=== PATIENT | male | born 1980 | race Two or more races ===

== ENCOUNTER 2017-04-26 21:05 | Emergency (ER) | payer SELFPAY ==
[2017-04-26 21:17] VITALS: BP 120/78; PULSE 70; RESP 18; TEMP 98.3; O2SAT 98
--- NOTE | 2017-04-26 22:05 | C.PDOC ---
History Of Present Illness 37 year old male presents to the ER with a complaint of a puritic rash to the upper chest and arms for the past 2 weeks after he went on a business trip and had to sleep in a motel. Patient is also complaining of irritation to the lower abdomen below the umbilicus for an even longer amount of time. Denies chest pain , SOB, difficulty breathing, or difficulty swallowing. Time Seen by Provider: 04/26/17 21:23 Chief Complaint (Nursing): Abnormal Skin Integrity History Per: Patient History/Exam Limitations: no limitations Onset/Duration Of Symptoms: Days Current Symptoms Are (Timing): Still Present Location Of Injury: Anterior: Abdomen Quality Of Symptoms: Itching Recent travel outside of the [place]: No Past Medical History Reviewed: Historical Data, Nursing Documentation, Vital Signs Vital Signs: Last Vital Signs Temp 98.3 F 04/26/17 21:12 Pulse 70 04/26/17 21:12 Resp 18 04/26/17 21:12 BP 120/78 04/26/17 21:12 Pulse Ox 98 04/27/17 00:35 Family History: States: Unknown Family Hx - Social History Hx Tobacco Use: No Hx Alcohol Use: No Hx Substance Use: No - Immunization History Hx Tetanus Toxoid Vaccination: No Hx Influenza Vaccination: No Hx Pneumococcal Vaccination: No Review Of Systems Constitutional: Negative for: Fever, Chills Cardiovascular: Negative for: Chest Pain, Palpitations Respiratory: Negative for: Shortness of Breath Skin: Positive for: Rash Physical Exam - Physical Exam Appears: Non-toxic Skin: Warm, Dry, Rash (Dry scaly erythema to lower abdomen consistent with contact dermatitis. Upper torso and bilateral arms with tiny maculopapular rash w/ scratch andre ) Head: Atraumatic, Normacephalic Eye(s): bilateral: Normal Inspection Chest: Symmetrical, No Tenderness Cardiovascular: Rhythm Regular Respiratory: Normal Breath Sounds, No Accessory Muscle Use, No Stridor, No Wheezing Gastrointestinal/Abdominal: Soft, No Tenderness Extremity: Normal ROM (x4) Neurological/Psych: Oriented x3, Normal Speech ED Course And Treatment O2 Sat by Pulse Oximetry: 98 (Room air) Pulse Ox Interpretation: Normal Progress Note: Patient is resting comfortably in the ER in no acute distress, vitals are stable, will discharge home with dermatology referral. Disposition - Disposition Referrals: [facility] at [facility] [Outside] Disposition: HOME/ ROUTINE Disposition Time: 22:00 Condition: STABLE Additional Instructions: Follow up with Commercial Lines Manager within 1-2 days. Return to ED if feel worse. 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 - Scribe Statement The provider has reviewed the documentation as recorded by the Scribe Riley Grier All medical record entries made by the Lorraine were at my direction and personally dictated by me. I have reviewed the chart and agree that the record accurately reflects my personal performance of the history, physical exam, medical decision making, and the department course for this patient. I have also personally directed, reviewed, and agree with the discharge instructions and disposition.
== END 2017-04-26 22:15 | disposition home or self-care (01) ==
LOC: C.ER 21:05
DX: R21 Rash and other nonspecific skin eruption (principal)

== ENCOUNTER 2018-06-19 12:44 | Observation (INO) | payer OTHER ==
--- NOTE | 2018-06-19 13:36 | C.PDOC ---
History Of Present Illness 38 year old male presents to ED with complaint of body aches s/p fall that occurred today at work. Patient states that he fell down a ladder when he lost his balance going down and fell 9 feet. Patient states that he fell on his left hip and right shoulder. Patient admits to head impact. Patient also complains of left hip, left ankle, left foot, right shoulder and right elbow pain. Patient rates the pain as a 9/10 in severity. He denies other injuries, syncope, headache, dizziness, weakness, chest pain, SOB, nausea, or vomiting. - HPI Chief Complaint (Nursing): Trauma History Per: Patient History/Exam Limitations: no limitations Onset/Duration Of Symptoms: Hrs Location Of Injury: Right: Elbow, Shoulder, Left: Ankle, Foot, Hip Pain Scale Rating Of: 9 - Fall Fall:Prior To Injury: Lost Balance Past Medical History Reviewed: Historical Data, Nursing Documentation, Vital Signs Vital Signs: Last Vital Signs Temp 98.6 F 06/19/18 12:49 Pulse 60 06/19/18 12:49 Resp 18 06/19/18 12:49 BP 116/74 06/19/18 12:49 Pulse Ox 100 06/19/18 12:49 Primary Care Provider: FAMILY PROVIDER,NO - Medical History PMH: No Chronic Diseases Surgical History: No Surg Hx Family History: States: Unknown Family Hx - Social History Hx Tobacco Use: No Hx Alcohol Use: No Hx Substance Use: No - Immunization History Hx Tetanus Toxoid Vaccination: No Hx Influenza Vaccination: No Hx Pneumococcal Vaccination: No Review Of Systems Constitutional: Positive for: Malaise. Negative for: Weakness Eyes: Negative for: Vision Change Cardiovascular: Negative for: Chest Pain Respiratory: Negative for: Shortness of Breath Gastrointestinal: Negative for: Nausea, Vomiting Musculoskeletal: Positive for: Shoulder Pain (right), Arm Pain (right elbow), Leg Pain (left hip pain ), Foot Pain (left foot and ankle pain ) Neurological: Negative for: Weakness, Numbness, Headache, Dizziness Physical Exam - Physical Exam Appears: Well, Non-toxic, No Acute Distress Skin: Normal Color, Warm, Dry Head: Normacephalic, No Tenderness, No Swelling, Abrasion (small, superficial abrasion to the forehead), No Other (active bleeding) Eye(s): bilateral: Normal Inspection, PERRL, EOMI Ear(s): Bilateral: Normal Nose: Normal, No Discharge Oral Mucosa: Moist Tongue: Normal Appearing Lips: Normal Appearing Throat: No Erythema, No Exudate Neck: Normal ROM, No Midline Cervical Tenderness, No Paracervical Tenderness, Supple Chest: Symmetrical, No Deformity Cardiovascular: Rhythm Regular, No Murmur Respiratory: Normal Breath Sounds, No Accessory Muscle Use, No Rales, No Rhonch i, No Wheezing Gastrointestinal/Abdominal: Soft, No Tenderness Extremity: Normal ROM (left ankle and left foot), Tenderness (left ankle, left hip, left foot, right shoulder, and right elbow tender to palpation, no ecchymosis, no edema, no erythema), No Calf Tenderness, Capillary Refill (<2 seconds), No Deformity, Other (limited ROM of the left hip and right shoulder due to pain) Pulses: Left Brachial: Normal, Right Brachial: Normal, Left Radial: Normal, Right Radial: Normal, Left Dorsalis Pedis: Normal, Right Dorsalis Pedis: Normal Neurological/Psych: Oriented x3, Normal Speech, Normal Cognition, Normal Sensation Gait: Unsteady ED Course And Treatment - Laboratory Results Result Diagrams: 06/20/18 07:06 06/20/18 07:06 O2 Sat by Pulse Oximetry: 100 (in RA) Pulse Ox Interpretation: Normal - Other Rad right elbow x-ray X-Ray: Viewed By Sd, Read By Radiologist Interpretation: Date of service: 06/19/2018. PROCEDURE: Radiographs of the right elbow. HISTORY: s/p fall. COMPARISON: No prior. TECHNIQUE: 3 views obtained. FINDINGS: BONES: Normal. No fracture. JOINTS: Normal. No osteoarthritis. SOFT TISSUES: Normal. JOINT EFFUSION: None. OTHER FINDINGS: None. IMPRESSION: Unremarkable radiographs of the right elbow. Left ankle x-ray X-Ray: Viewed By Me, Read By Radiologist Interpretation: Date of service: 06/19/2018. PROCEDURE: Left Ankle Radiographs. HISTORY: s/p fall. COMPARISON: None available. TECHNIQUE: 3 views obtained. FINDINGS: BONES: Normal. No fracture. JOINTS: Normal. No osteoarthritis. Ankle mortise maintained. Talar dome intact. SOFT TISSUES: Normal. OTHER FINDINGS: None. IMPRESSION: Normal left ankle radiographs. Left foot x-ray X-Ray: Viewed By Me, Read By Radiologist Interpretation: 06/19/2018. PROCEDURE: Left Foot Radiographs. HISTORY: s/p fall. COMPARISON: None. TECHNIQUE: 3 views obtained. FINDINGS: BONES: Curvilinear ossific density adjacent to the medial border of the navicular could represent avulsion injury. Indeterminate chronicity. Correlate with clinical examination. No other fracture identified. JOINTS: Normal. SOFT TISSUES: Normal. OTHER FINDINGS: None. IMPRESSION: Questionable cortical avulsion fracture of the medial aspect of the navicular. Indeterminate chronicity. Please correlate clinically. No additional abnormality. Left hip x-ray X-Ray: Viewed By Me, Read By Radiologist Interpretation: PROCEDURE: Left Hip X-ray Radiographs. HISTORY: s/p fall. COMPARISON: None. TECHNIQUE: 2 views obtained. FINDINGS: BONES: Normal. No fracture. JOINTS: Normal. SOFT TISSUES: Normal. OTHER FINDINGS: None. IMPRESSION: Normal left hip radiographs. right shoulder x-ray X-Ray: Viewed By Me, Read By Radiologist Interpretation: Date of service: 06/19/2018. PROCEDURE: Radiographs of the Right Shoulder. HISTORY: s/p fall. COMPARISON: No prior. TECHNIQUE: 3 views obtained. FINDINGS: BONES: Normal. No fracture. JOINTS: Normal. Glenohumeral and acromioclavicular joints preserved. No osteoarthritis. SOFT TI SSUES: Normal. OTHER FINDINGS: None. IMPRESSION: Normal radiographs of the right shoulder. - CT Scan/US Left lower leg CT Other Rad Studies (CT/US): Read By Radiologist, Radiology Report Reviewed CT/US Interpretation: History: Navicular avulsion fracture. Comparison: None. Technique: CT examination left lower extremity. CT examination of left lower extremity was made using thin axis sections. Images were reconstructed in the coronal and sagittal planes. The osseous structures appear in satisfactory alignment. There is a small avulsion type fracture along the medial aspect of the navicular bone. There is a small separate linear calcification within the soft tissues along the medial aspect of the calcaneus. The finding may be chronic in nature. There is no significant osteoarthritic change. Impression: Small avulsion type fracture of the medial aspect of the navicular bone. Small linear separate calcification in the soft tissues on the medial aspect of the calcaneus. Clinical correlation advised. . Electronically signed on June 19, 2018 7:55:41 PM EDT by: Ayush Claudio M.D., Certified by [facility], Diagnostic Radiology Medical Decision Making Medical Decision Making: Impression: 38 year old male presents to ED with complaint of body aches s/p fal l that occurred today at work. Initial Plan: Imaging of upper and lower extremities ordered as per complaints Flexeril PO given Toradol IM given Reviewed imaging and patient was noted to have a navicular fracture Per request of Podiatry, CT ordered of lower extremity Reviewed with podiatry Split placed by Podiatry Attempted to train patient on how to use crutches and walker due to being non w eight bearing but patient could not tolerate it due shoulder pain D/w Dr. 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 (Jillian Ballard) - Scribe Statement The provider has reviewed the documentation as recorded by the Scribe (Jillian Ballard) All medical record entries made by the Scribe were at my direction and personally dictated by me. I have reviewed the chart and agree that the record accurately reflects my personal performance of the history, physical exam, medical decision making, and the department course for this patient. I have also personally directed, reviewed, and agree with the discharge instructions and disposition. Decision To Admit - Pt Status Changed To: Hospital Disposition Of: Observation - . Bed Request Type: Regular Admitting Physician: Mahad Childers Patient Diagnosis: Shoulder pain, Left foot pain, Left hip pain, Navicular fracture, foot
--- NOTE | 2018-06-19 13:37 | C.PDOC ---
- HPI Chief Complaint (Nursing): Trauma Past Medical History Vital Signs: Last Vital Signs Temp 98.6 F 06/19/18 12:49 Pulse 60 06/19/18 12:49 Resp 18 06/19/18 12:49 BP 116/74 06/19/18 12:49 Pulse Ox 100 06/19/18 12:49 Primary Care Provider: FAMILY PROVIDER,NO Family History: States: Unknown Family Hx - Social History Hx Tobacco Use: No Hx Alcohol Use: No Hx Substance Use: No - Immunization History Hx Tetanus Toxoid Vaccination: No Hx Influenza Vaccination: No Hx Pneumococcal Vaccination: No ED Course And Treatment O2 Sat by Pulse Oximetry: 100 Disposition - Disposition
--- NOTE | 2018-06-19 14:26 | RAD ---
Date of service: 06/19/2018 PROCEDURE: Left Ankle Radiographs. HISTORY: s/p fall COMPARISON: None available. TECHNIQUE: 3 views obtained. FINDINGS: BONES: Normal. No fracture. JOINTS: Normal. No osteoarthritis. Ankle mortise maintained. Talar dome intact SOFT TISSUES: Normal. OTHER FINDINGS: None. IMPRESSION: Normal left ankle radiographs.
--- NOTE | 2018-06-19 14:26 | RAD ---
Date of service: 06/19/2018 PROCEDURE: Radiographs of the right elbow. HISTORY: s/p fall COMPARISON: No prior. TECHNIQUE: 3 views obtained. FINDINGS: BONES: Normal. No fracture. JOINTS: Normal. No osteoarthritis. SOFT TISSUES: Normal. JOINT EFFUSION: None. OTHER FINDINGS: None. IMPRESSION: Unremarkable radiographs of the right elbow.
--- NOTE | 2018-06-19 14:39 | RAD ---
Date of service: 06/19/2018 PROCEDURE: Left Foot Radiographs. HISTORY: s/p fall COMPARISON: None. TECHNIQUE: 3 views obtained. FINDINGS: BONES: Curvilinear ossific density adjacent to the medial border of the navicular could represent avulsion injury. Indeterminate chronicity. Correlate with clinical examination. No other fracture identified. JOINTS: Normal. SOFT TISSUES: Normal. OTHER FINDINGS: None. IMPRESSION: Questionable cortical avulsion fracture of the medial aspect of the navicular. Indeterminate chronicity. Please correlate clinically. No additional abnormality.
--- NOTE | 2018-06-19 14:40 | RAD ---
PROCEDURE: Left Hip X-ray Radiographs. HISTORY: s/p fall COMPARISON: None. TECHNIQUE: 2 views obtained. FINDINGS: BONES: Normal. No fracture. JOINTS: Normal. SOFT TISSUES: Normal. OTHER FINDINGS: None. IMPRESSION: Normal left hip radiographs.
--- NOTE | 2018-06-19 14:40 | RAD ---
Date of service: 06/19/2018 PROCEDURE: Radiographs of the Right Shoulder HISTORY: s/p fall COMPARISON: No prior. TECHNIQUE: 3 views obtained. FINDINGS: BONES: Normal. No fracture. JOINTS: Normal. Glenohumeral and acromioclavicular joints preserved. No osteoarthritis. SOFT TISSUES: Normal. OTHER FINDINGS: None. IMPRESSION: Normal radiographs of the right shoulder.
--- NOTE | 2018-06-19 15:39 | CP.PCM.CON ---
History of Present Illness - History of Present Illness History of Present Illness: Podiatry Consult Note: Dr. Zhao 38 y/o M patient with no PMHx, seen and examined at ED for left LE pain. Patient states that he sustained a 1 floor fall today at 11 am on his left side. He states that he immediately was unable to bear weight on his LLE. He states that the pain is mainly in his left thigh and hip but he also has pain in his left midfoot but not as sever as his hip and thigh. He denies any nausea/vomiting/fever/shortness of breath. He denies any tingling, numbness or burning sensation in his LLE. He denies any other pedal complaint at this time. PMHx: denies PSHx: denies ALL: NKDA Social Hx: Smoke occasionally, Denies EtOH use or illicit drug use. Review of Systems - Review of Systems Review of Systems: As per HPI Past Patient History - Past Social History Smoking Status: Never Smoked - PSYCHIATRIC Hx Substance Use: No - SURGICAL HISTORY Hx Surgeries: No - ANESTHESIA Hx Anesthesia: No Meds Allergies/Adverse Reactions: Allergies Allergy/AdvReac Type Severity Reaction Status Date / Time No Known Allergies Allergy Verified 04/26/17 21:16 Physical Exam - Constitutional Appears: Non-toxic, No Acute Distress - Head Exam Head Exam: NORMOCEPHALIC - Extremities Exam Additional comments: B/L LE focused exam: Vascular: DP/PT 2/4 b/l, Cap refill < 3 seconds to all digits, Temp gradient warm to cool from proximal to distal b/l. Minimal non pitting edema noted to the left foot and ankle. Neuro: Gross and protective sensation intact. Derm: No open lesions, no erythema, no clinical signs of infection. Ecchymosis noted on the left lateral perimalleolar area. MSK: Pain with palpation of left navicular bone, MMT 4/5 secondary to guarding, Achilles intact. Pain with inversion of the left foot. Pain on attempt of loading the left midfoot - Neurological Exam Neurological exam: Alert, Oriented x3 - Psychiatric Exam Psychiatric exam: Normal Mood Results - Vital Signs Recent Vital Signs: Last Vital Signs Temp 98.6 F 06/19/18 12:49 Pulse 60 06/19/18 12:49 Resp 18 06/19/18 12:49 BP 116/74 06/19/18 12:49 Pulse Ox 100 06/19/18 13:50 Assessment & Plan - Assessment and Plan (Free Text) Assessment: 38 y/o M patient with no PMHx, seen and examined at ED for left navicular fracture and left anklel sprain 2ry to sustaining fall earlier today. Plan: Patient seen and examined Discussed patient in details with Dr. Zhao X-ray left foot: avulsion fracture of the medial aspect of navicular bone. X-ray left ankle: No osseous anomalies. CT scan ordered for LLE. Posterior splint applied to LLE. Patient to remain NWB to lower extremity and ambulates using crutches Posterior splint to be left C/D/I Patient educated RICE protocol OTC pain medication PRN Patient expressed verbal understanding F/U in podiatry clinic at [facility] in 1 week - Date & Time Date: 06/19/18 Time: 15:36
[2018-06-19 18:53] VITALS: RESP 20
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
[2018-06-19 21:22] LABS: BASO % 0.4 % (0.0-2.0); EOS % 0.2 % (0.0-4.0); HEMOGLOBIN 15.9 g/dL (12.0-18.0); LYMPH # 1.2 K/uL (1.0-4.3); LYMPH % 10.1 % (20.0-40.0); MEAN CELL VOLUME 90.3 fL (80.0-94.0); MEAN CORPUSCULAR HEMOGLOBIN 31.4 pg (27.0-31.0); MEAN CORPUSCULAR HGB CONC 34.8 g/dL (33.0-37.0); MEAN PLATELET VOLUME 8.5 fL (7.2-11.7); MONO # 0.8 K/uL (0.0-0.8); MONO % 7.1 % (0.0-10.0); NEUT # 9.8 K/uL (1.8-7.0); NEUT % 82.2 % (50.0-75.0); RBC 5.07 Mil/uL (4.40-5.90); RED CELL DISTRIBUTION WIDTH 12.4 % (11.5-14.5); WHITE BLOOD COUNT 11.9 K/uL (4.8-10.8)
[2018-06-19 21:34] LABS: ALB/GLOB RATIO 1.4 (1.0-2.1); ALBUMIN 4.5 g/dL (3.5-5.0); ALT/SGPT 28 U/L (21-72); AST/SGOT 54 U/L (17-59); BLOOD UREA NITROGEN 16 mg/dL (9-20); CALCIUM 9.4 mg/dl (8.6-10.4); GFR NON-AFRICAN AMERICAN > 60
[2018-06-20 07:18] LABS: BASO % 0.2 % (0.0-2.0); EOS # 0.1 K/uL (0.0-0.7); EOS % 0.7 % (0.0-4.0); HEMOGLOBIN 15.4 g/dL (12.0-18.0); LYMPH # 1.1 K/uL (1.0-4.3); MEAN CELL VOLUME 90.9 fL (80.0-94.0); MEAN CORPUSCULAR HEMOGLOBIN 32.2 pg (27.0-31.0); MEAN CORPUSCULAR HGB CONC 35.4 g/dL (33.0-37.0); MONO # 0.7 K/uL (0.0-0.8); NEUT # 7.9 K/uL (1.8-7.0); NEUT % 81.1 % (50.0-75.0); RBC 4.79 Mil/uL (4.40-5.90); RED CELL DISTRIBUTION WIDTH 12.5 % (11.5-14.5); WHITE BLOOD COUNT 9.7 K/uL (4.8-10.8)
[2018-06-20 07:40] LABS: ALB/GLOB RATIO 1.5 (1.0-2.1); ALBUMIN 4.2 g/dL (3.5-5.0); ALT/SGPT 29 U/L (21-72); AST/SGOT 51 U/L (17-59); BLOOD UREA NITROGEN 17 mg/dL (9-20); CALCIUM 8.6 mg/dl (8.6-10.4); GFR NON-AFRICAN AMERICAN > 60
--- NOTE | 2018-06-20 09:43 | CT ---
Date of service: 06/19/2018 PROCEDURE: CT of the Left lower extremity. HISTORY: navicular avulsion fracture COMPARISON: Plain radiographs performed the same day. TECHNIQUE: Contiguous axial images of the left lower extremity were obtained. Coronal and sagittal reformats were generated. Radiation dose: Total exam DLP = 580.03 mGy-cm. This CT exam was performed using one or more of the following dose reduction techniques: Automated exposure control, adjustment of the mA and/or kV according to patient size, and/or use of iterative reconstruction technique. FINDINGS: BONES: There is a linear ossific density posterior to the medial navicular. There is also a linear ossific density medial to the posterior calcaneus. Bone alignment and mineralization are normal. The joint spaces are preserved. No dislocation. No degenerative changes. SOFT TISSUES: The periarticular muscles are normal. There is diffuse subcutaneous edema in the foot. IMPRESSION: Suspect age indeterminate avulsion type fractures posterior to the medial navicular and medial to the posterior calcaneus. Please correlate with point tenderness and clinical history. A preliminary report was provided by [employer].
[2018-06-20] MEDS ORDERED: Enoxaparin 40 mg Syringe SC SCH (10:00)
[2018-06-20] MEDS ORDERED: Oxycodone/Acetaminophen 5/325 mg Tab PO STA (12:20)
[2018-06-20] MEDS ORDERED: MethylPREDNISolone 40 mg Vial IVP STA (12:32)
[2018-06-20] MEDS ORDERED: Folic Acid 1 MG, Multivitamin (MVI) 10 ML, Thiamine 100 MG in Sodium Chloride 0.9% 1,00... IV SCH (13:00)
--- NOTE | 2018-06-20 13:02 | CP.PCM.DIS ---
<NixonMoise - Last Filed: 06/20/18 14:52> Provider - Provider Date of Admission: 06/19/18 20:19 Attending physician: Mahad Childers MD Consults: 06/19/18 21:05 Podiatry Consult Routine Comment: Consulting Provider: Linda Zhao Consulting Physician: Linda Zhao Reason for Consult: left navicular fracture 06/20/18 12:33 Case Management Referral Routine Comment: Physician Instructions: Reason For Exam: TO BE DISCHARGE WITH ROLLING WALKER Reason for Referral: Discharge Planning Time Spent in preparation of Discharge (in minutes): 35 Diagnosis - Discharge Diagnosis (1) Avulsion fracture of navicular bone of foot Status: Acute (2) Status post fall Status: Acute Hospital Course - Lab Results Lab Results: Most Recent Lab Values WBC 9.7 K/uL (4.8-10.8) 06/20/18 07:06 RBC 4.79 Mil/uL (4.40-5.90) 06/20/18 07:06 Hgb 15.4 g/dL (12.0-18.0) 06/20/18 07:06 Hct 43.6 % (35.0-51.0) 06/20/18 07:06 MCV 90.9 fL (80.0-94.0) 06/20/18 07:06 MCH 32.2 pg (27.0-31.0) H 06/20/18 07:06 MCHC 35.4 g/dL (33.0-37.0) 06/20/18 07:06 RDW 12.5 % (11.5-14.5) 06/20/18 07:06 Plt Count 142 K/uL (130-400) 06/20/18 07:06 MPV 9.0 fL (7.2-11.7) 06/20/18 07:06 Neut % (Auto) 81.1 % (50.0-75.0) H 06/20/18 07:06 Lymph % (Auto) 11.0 % (20.0-40.0) L 06/20/18 07:06 Milam % (Auto) 7.0 % (0.0-10.0) 06/20/18 07:06 Eos % (Auto) 0.7 % (0.0-4.0) 06/20/18 07:06 Baso % (Auto) 0.2 % (0.0-2.0) 06/20/18 07:06 Neut # (Auto) 7.9 K/uL (1.8-7.0) H 06/20/18 07:06 Lymph # (Auto) 1.1 K/uL (1.0-4.3) 06/20/18 07:06 Milam # (Auto) 0.7 K/uL (0.0-0.8) 06/20/18 07:06 Eos # (Auto) 0.1 K/uL (0.0-0.7) 06/20/18 07:06 Baso # (Auto) 0.0 K/uL (0.0-0.2) 06/20/18 07:06 Sodium 138 mmol/L (132-148) 06/20/18 07:06 Potassium 3.8 mmol/L (3.6-5.2) 06/20/18 07:06 Chloride 105 mmol/L (98-107) 06/20/18 07:06 Carbon Dioxide 23 mmol/L (22-30) 06/20/18 07:06 Anion Gap 14 (10-20) 06/20/18 07:06 BUN 17 mg/dL (9-20) 06/20/18 07:06 Creatinine 0.6 mg/dL (0.8-1.5) L 06/20/18 07:06 Est GFR ( Amer) > 60 06/20/18 07:06 Est GFR (Non-Af Amer) > 60 06/20/18 07:06 Random Glucose 99 mg/dL (75-110) 06/20/18 07:06 Calcium 8.6 mg/dl (8.6-10.4) 06/20/18 07:06 Total Bilirubin 1.0 mg/dL (0.2-1.3) 06/20/18 07:06 AST 51 U/L (17-59) 06/20/18 07:06 ALT 29 U/L (21-72) 06/20/18 07:06 Alkaline Phosphatase 83 U/L (38-126) 06/20/18 07:06 Total Protein 7.0 g/dL (6.3-8.3) 06/20/18 07:06 Albumin 4.2 g/dL (3.5-5.0) 06/20/18 07:06 Globulin 2.7 gm/dL (2.2-3.9) 06/20/18 07:06 Albumin/Globulin Ratio 1.5 (1.0-2.1) 06/20/18 07:06 - Hospital Course Hospital Course: On admission: Patient is a 38 year old male with no pmhx who presents to the ED with complaints of left foot and right shoulder pain after sustaining a fall at work today. 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 He reports immediate pain and has been unable to bear weight. He reports decreased range of motion of right arm and left leg 2/2 pain. Patient denies trauma to head, headache, dizziness, chest pain, abdominal pain. Hospital course: Right elbow x-ray, right shoulder x-ray, left hip x-ray, left ankle x-ray were normal. Left foot x-ray showed cortical avulsion fracture of th emedial aspect of the left navicular bone. Pt started on pain medications. Left lower extremity CT showed age indeterminate avulsion fracture of the posterior medial navicular and medial to the posterior calcaneous. Podiatry, Dr. Zhao, consulted. Pt placed on posterior splint, with instructions to follow up at the podiatry clinic at [facility] in 1 week. Pt educated in RICE protocol. Instructed to take OTC pain medications PRN. PT evaluated pt and recommended rolling walker. This is a summary of the hospital course. Please see EMR for full details. Discharge Exam - Additional Findings Additional findings: - Constitutional Appears: Non-toxic, No acute distress - Head Exam Head Exam: ATRAUMATIC, NORMAL INSPECTION, NORMOCEPHALIC - Eye Exam Eye Exam: EOMI, Normal appearance Pupil Exam: NORMAL ACCOMODATION - ENT Exam ENT Exam: Mucous Membranes Moist, Normal Exam - Neck Exam Neck exam: Positive for: Normal Inspection - Respiratory Exam Respiratory Exam: Clear to Auscultation Bilateral, NORMAL BREATHING PATTERN - Cardiovascular Exam Cardiovascular Exam: REGULAR RHYTHM, +S1, +S2 - GI/Abdominal Exam GI & Abdominal Exam: Normal Bowel Sounds, Soft. absent: Tenderness - Extremities Exam Extremities exam: Distal extremity bilateral upper and lower pulses are 2+. Negative for: normal inspection Additional comments: Left foot in posterios splint. Decreased ROM 2/2 pain RIght shoulder with hypertonicty and tenderness to palpation diffusely. No signs of rotator cuff tear. Active ROM limited 2/2 pain. Passive ROM is full. No ecchymosis/abrasion. - Back Exam Back exam: NORMAL INSPECTION - Neurological Exam Neurological exam: Alert, Oriented x3 - Psychiatric Exam Psychiatric exam: Anxious - Skin Skin Exam: Dry, Intact, Normal Color, Warm Additional comments: no ecchymosis or abrasions noted Discharge Plan - Discharge Medications Prescriptions: Cyclobenzaprine [Flexeril] 5 mg PO TID PRN #42 tab PRN Reason: Muscle Spasm RX: Ibuprofen [Motrin Tab] 800 mg PO TID #42 tab - Follow Up Plan Condition: STABLE Disposition: HOME/ ROUTINE Instructions: Heart Healthy Diet, Muscle and Bone Pain (DC), Foot Fracture (DC), Cyclobenzaprine, Ibuprofen Additional Instructions: Pt is medically stable for discharge home as per Dr. Treviño Prescriptions given: Motrin 800 mg PO TID with food. #42 Flexeril 5 mg PO TID. #42 Continue meds as instructed Follow up with Podiatry clinic on Friday 06/23 at [facility] basement Rest, Ice, Compression, and Elevation No Weight Bearing on left foot. WIll be discharged with rolling walker. Return to ED if symptoms worsen Instruction explained to the pt, who understands and agrees with discharge plan. Pt es mdicamente estable para el adela hospitalaria segn el Dr. Treviño Prescripciones dadas: Motrin 800 mg PO TID con los alimentos. # 42 Flexeril 5 mg PO TID. # 42 Continuar los medicamentos segn las instrucciones Alisha un seguimiento con la clnica de podologa el 06/23 en el [facility] [place], [place]ielo, Compresin y Elevacin. Sin peso teniendo en el pie kvng. Sern dados de adela con el andador rodante. Volver a la disfuncin erctil si los sntomas empeoran. Instruccin explicada al PT, que entiende y est de acuerdo con el plan de adela. Referrals: Orthopedic Clinic at [Outside] <Isabell Treviño V - Last Filed: 06/20/18 23:23> Provider - Provider Date of Admission: 06/19/18 20:19 Attending physician: Mahad Childers MD Consults: 06/19/18 21:05 Podiatry Consult Routine Comment: Consulting Provider: Linda Zhao Consulting Physician: Linda Zhao Reason for Consult: left navicular fracture 06/20/18 12:33 Case Management Referral Routine Comment: Physician Instructions: Reason For Exam: TO BE DISCHARGE WITH ROLLING WALKER Reason for Referral: Discharge Planning Diagnosis - Discharge Diagnosis (1) Ambulatory dysfunction Status: Resolved Comment: limited secondary to pain. Physical therapy worked with patient. provided NSAID as needed and muscle relaxant as needed. IV hydration. ice when needed (2) Avulsion fracture of navicular bone of foot Status: Chronic Comment: seen by podiatry. discussed case with team. patient to f/u with podiatry at outpatient clinic (3) Status post fall Status: Resolved Comment: patient had completed series of xrays during no acute fracture aside of avulsion fracture noted above Hospital Course - Lab Results Lab Results: Most Recent Lab Values WBC 9.7 K/uL (4.8-10.8) 06/20/18 07:06 RBC 4.79 Mil/uL (4.40-5.90) 06/20/18 07:06 Hgb 15.4 g/dL (12.0-18.0) 06/20/18 07:06 Hct 43.6 % (35.0-51.0) 06/20/18 07:06 MCV 90.9 fL (80.0-94.0) 06/20/18 07:06 MCH 32.2 pg (27.0-31.0) H 06/20/18 07:06 MCHC 35.4 g/dL (33.0-37.0) 06/20/18 07:06 RDW 12.5 % (11.5-14.5) 06/20/18 07:06 Plt Count 142 K/uL (130-400) 06/20/18 07:06 MPV 9.0 fL (7.2-11.7) 06/20/18 07:06 Neut % (Auto) 81.1 % (50.0-75.0) H 06/20/18 07:06 Lymph % (Auto) 11.0 % (20.0-40.0) L 06/20/18 07:06 Milam % (Auto) 7.0 % (0.0-10.0) 06/20/18 07:06 Eos % (Auto) 0.7 % (0.0-4.0) 06/20/18 07:06 Baso % (Auto) 0.2 % (0.0-2.0) 06/20/18 07:06 Neut # (Auto) 7.9 K/uL (1.8-7.0) H 06/20/18 07:06 Lymph # (Auto) 1.1 K/uL (1.0-4.3) 06/20/18 07:06 Milam # (Auto) 0.7 K/uL (0.0-0.8) 06/20/18 07:06 Eos # (Auto) 0.1 K/uL (0.0-0.7) 06/20/18 07:06 Baso # (Auto) 0.0 K/uL (0.0-0.2) 06/20/18 07:06 Sodium 138 mmol/L (132-148) 06/20/18 07:06 Potassium 3.8 mmol/L (3.6-5.2) 06/20/18 07:06 Chloride 105 mmol/L (98-107) 06/20/18 07:06 Carbon Dioxide 23 mmol/L (22-30) 06/20/18 07:06 Anion Gap 14 (10-20) 06/20/18 07:06 BUN 17 mg/dL (9-20) 06/20/18 07:06 Creatinine 0.6 mg/dL (0.8-1.5) L 06/20/18 07:06 Est GFR ( Amer) > 60 06/20/18 07:06 Est GFR (Non-Af Amer) > 60 06/20/18 07:06 Random Glucose 99 mg/dL (75-110) 06/20/18 07:06 Calcium 8.6 mg/dl (8.6-10.4) 06/20/18 07:06 Total Bilirubin 1.0 mg/dL (0.2-1.3) 06/20/18 07:06 AST 51 U/L (17-59) 06/20/18 07:06 ALT 29 U/L (21-72) 06/20/18 07:06 Alkaline Phosphatase 83 U/L (38-126) 06/20/18 07:06 Total Protein 7.0 g/dL (6.3-8.3) 06/20/18 07:06 Albumin 4.2 g/dL (3.5-5.0) 06/20/18 07:06 Globulin 2.7 gm/dL (2.2-3.9) 06/20/18 07:06 Albumin/Globulin Ratio 1.5 (1.0-2.1) 06/20/18 07:06 Attending/Attestation - Attestation I have personally seen and examined this patient.: Yes I have fully participated in the care of the patient.: Yes I have reviewed all pertinent clinical information, including history, physical exam and plan: Yes Notes (Text): Patient seen, examined, and case discussed with day-time resident. Patient seen and re-evaluated post session with physical therapy. He reports he has muscle aches and pains. He is aware per podiatry standpoint he is to be nonweightbearing on his left lower extremity which is wrapped in the splint. Patient provided safe practices by physical therapy regarding using stairs (must bump-guard on the steps, literally sit on the step) which he was taught in the hospital. Patient hydrated during the hospital. Patient encouraged to use anti-inflammatory tor reduce muscle aches if needed and muscle relaxant if needed (he was advised side effects regarding muscle relaxant including vivid dreams, lethargy, and not to operate heavy machine). Patient also advised to ice when he is resting. Patient's xrays reviewed no fractures noted. Discussed with podiatry resident regarding CT LLE--->no intervention other than initial recommendation, f/u podiatry clinic. Patient provided script for rolling walker. Patient urged to followup and establish care with [facility] since he is without insurance. This is a summary of patient's hospitalization. Please see EMR for full detail of record.
[2018-06-20 14:32] VITALS: PULSE 62
[2018-06-20 16:46] VITALS: BP 114/67; TEMP 98
[2018-06-21 16:55] VITALS: O2SAT 100
== END 2018-06-20 18:16 | disposition home or self-care (01) ==
LOC: C.ER 12:44 → C.9E 20:19 → C.6T 21:20
PROVIDERS: ADMIT Family Medicine; ATTEND Family Medicine
DX: S92.253A Displaced fracture of navicular [scaphoid] of unspecified foot, initial encounter for closed fracture (principal); W11.XXXA Fall on and from ladder, initial encounter; Y99.0 Civilian activity done for income or pay
CPT/HCPCS: 36415; 73030; 73080; 73502; 73610; 73630; 73700; 80053; 85025; 96372; 97116; 97162; 97166; 97530; 99285; G0378; G8978; G8979; G8987; G8988; J1650; J1885; J2920; J3411; J7030

== ENCOUNTER 2018-07-07 12:12 | Emergency (ER) | payer OTHER ==
[2018-07-07 12:35] VITALS: BP 125/75; PULSE 88; RESP 16; TEMP 98; O2SAT 98
--- NOTE | 2018-07-07 13:52 | C.PDOC ---
History Of Present Illness 38 year old male presents to ED with complaint of right shoulder pain and decreased range of motion. Patient was recently admitted on 06/19 for a left navicular fracture after fall and inability to ambulate. Patient states that he has tried going to the clinic to follow up, but has been unable to. He states that Motrin has not helped. He denies weakness or numbness. Time Seen by Provider: 07/07/18 13:01 Chief Complaint (Nursing): Upper Extremity Problem/Injury History Per: Patient History/Exam Limitations: no limitations Onset/Duration Of Symptoms: Other (4 weeks) Current Symptoms Are (Timing): Still Present Quality: "Pain" Past Medical History Reviewed: Historical Data, Nursing Documentation, Vital Signs Vital Signs: Last Vital Signs Temp 98 F 07/07/18 12:32 Pulse 88 07/07/18 12:32 Resp 16 07/07/18 12:32 BP 125/75 07/07/18 12:32 Pulse Ox 98 07/07/18 12:32 Primary Care Provider: FAMILY PROVIDER,NO - Medical History PMH: No Chronic Diseases Surgical History: No Surg Hx Family History: States: Unknown Family Hx - Social History Hx Tobacco Use: No Hx Alcohol Use: No Hx Substance Use: No - Immunization History Hx Tetanus Toxoid Vaccination: No Hx Influenza Vaccination: No Hx Pneumococcal Vaccination: No Review Of Systems Constitutional: Negative for: Fever, Chills, Weakness Musculoskeletal: Positive for: Shoulder Pain (right shoulder pain and decreased ROM) Neurological: Negative for: Weakness, Numbness Physical Exam - Physical Exam Appears: Non-toxic, No Acute Distress, Other (thin male, walking around the ED) Skin: Normal Color, Warm, Dry Head: Atraumatic, Normacephalic Neck: Normal ROM, Supple Extremity: No Tenderness, Capillary Refill <2 Sec (<2 seconds), No Deformity, No Swelling, Other (decreased ROM to the right shouler) Extremity: Bilateral: Normal Color And Temperature Pulses: Left Radial: Normal, Right Radial: Normal Neurological/Psych: Oriented x3, Normal Speech, Normal Cognition, Normal Motor, Normal Sensation Gait: Steady ED Course And Treatment O2 Sat by Pulse Oximetry: 98 (in RA) Pulse Ox Interpretation: Normal Medical Decision Making Medical Decision Making: Impression: 38 year old male presents to ED with complaint of right shoulder pain and decreased range of motion. has not been able to f/u yet pt advised he needs to see both podiatry and orthopedics Initial Plan: Toradol Tylenol Disposition Counseled Patient/Family Regarding: Diagnosis, Need For Followup, Rx Given - Disposition Referrals: [facility] at [facility] [Outside] Orthopedic Clinic at [Outside] [facility] at [place] [Outside] Podiatry Clinic [Outside] Disposition: HOME/ ROUTINE Disposition Time: 14:41 Condition: GOOD Additional Instructions: Follow up at either [facility] [place] (Mondays) or [place] (Sat or Sat) podiatry clinic for foot and ankle. Follow up in either [facility] [place] or [place] orthopedic clinic for shoulder. Take Tylenol and Naproxen for pain. Prescriptions: Acetaminophen [Tylenol 325mg tab] 650 mg PO Q4 #50 tab Naproxen 500 mg PO BID #20 tab Instructions: Shoulder Sprain (DC) Forms: [facility] (Arabic), General Discharge Instructions - Clinical Impression Clinical Impression: Right shoulder pain - PA / COUNTRY PRINTER / Resident Statement MD/DO has reviewed & agrees with the documentation as recorded. (Jillian Ballard) - Scribe Statement The provider has reviewed the documentation as recorded by the Scribe (Jillian Ballard) All medical record entries made by the Scribe were at my direction and personally dictated by me. I have reviewed the chart and agree that the record accurately reflects my personal performance of the history, physical exam, medical decision making, and the department course for this patient. I have also personally directed, reviewed, and agree with the discharge instructions and disposition.
== END 2018-07-07 14:03 | disposition home or self-care (01) ==
LOC: C.ER 12:12
DX: M25.511 Pain in right shoulder (principal)
CPT/HCPCS: 96372; 99283; J1885